=== PATIENT | male | born 1970 | race Caucasian/White ===

== ENCOUNTER → 2020-05-23 09:38 | Outpatient (BNVA) | payer OTHER, SELFPAY | PROVIDERS: Visit Provider Surgery | DX: Z12.11 Encounter for screening for malignant neoplasm of colon (principal); K64.9 Unspecified hemorrhoids; Z20.828 Contact with and (suspected) exposure to other viral communicable diseases | CPT/HCPCS: 87635 ==

== ENCOUNTER 2020-05-27 06:48 | Day surgery (SDC) | payer SELFPAY ==
[2020-05-23 11:58] VITALS: BMI 32.5
[2020-05-27] VITALS (17 sets, daily range): BP systolic 107–176; BP diastolic 83–117; PULSE 54–96; RESP 16–24; TEMP 36.2–37.4; O2SAT 94–100
--- NOTE | 2020-05-27 07:24 | ANES.PREANE2 ---
Pre-Anesthetic Assessment Pre-Anesthetic Assessment: Height/Weight: Height 1.83 m Weight 108.862 kg Temp Pulse Resp BP Pulse Ox 97.1 F L 68 18 166/104 97 05/27/20 07:12 05/27/20 07:12 05/27/20 07:12 05/27/20 07:12 05/27/20 07:12 Preop Diagnosis: Symptomatic hemorrhoids Proposed Procedure: Operation Date: 05/27/20 08:25 Proposed Procedures p Colonoscopy 50955 [id number] Z12.11 K64.9(Not Applicable) - Hi Marie MD s Exam Under Anesthesia(Not Applicable) - Hi Marie MD s Hemorroidectomy(Not Applicable) - Hi Marie MD Familial anesthetic complications: No hx of anesthesia Was Beta Jj taken within 24 hours: N/A Last intake: Intake Last Liquid Date 05/26/20 Last Liquid Time 20:00 Last Solid Date 05/25/20 Last Solid Time 20:00 Social: Social History: No alcohol and No tobacco Exam: Pre-Anes Outpt Exam: alert, oriented x 3, clear to auscultation bilaterally and regular rate & rhythm Airway: Cervical ROM: WNL MP: 3 Dentition: Other (missing teeth) Anesthetic Plan: ASA status: 1 Anesthesia: General Risk of > 500 ml blood loss (7ml/kg in children): No PFSH Anesthesia PFSH: Family History Father Cancer lung Grandmother Cancer bone marrow Other Diabetes Denies family history of CAD (coronary artery disease) Anesthesia complication Bleeding disorder Social History Smoking and tobacco status: former smoker Alcohol intake: former Household members: family Marital status: Single Current occupational status: employed History of recent travel: Yes Details: [place] Out of state: Yes Data Anesthesia Cardiac Studies: No Data to Display
[2020-05-27] MEDS: sodium chloride 0.9% 1,000 ML 30 ML IV (07:28)
--- NOTE | 2020-05-27 08:22 | W.PM.OPSUD ---
Surgery/Procedure H&P Update DATE OF PROCEDURE: May 27, 2020 DATE H&P PERFORMED: 05/15/20 H&P UPDATE INFORMATION: I have reviewed H&P completed within last 30 days, I have examined patient prior to procedure and No changes to prior documentation PREOP DIAGNOSIS: Symptomatic hemorrhoids PRIMARY INDICATION FOR PROCEDURE: The same PLANNED PROCEDURE: Operation Date: 05/27/20 08:25 Proposed Procedures p Colonoscopy 53068 [id number] 39289 Z12.11 K64.9(Not Applicable) - Hi Marie MD s Exam Under Anesthesia(Not Applicable) - Hi Marie MD s Hemorroidectomy(Not Applicable) - Hi Marie MD
[2020-05-27] MEDS: piperacillin-tazobactam 3.375 GM in sodium chloride 0.9% (plus) 50 ML IV (08:51)
--- NOTE | 2020-05-27 10:09 | PM.OP ---
Operative Report Date of procedure: May 27, 2020 Pre-op Diagnosis: Symptomatic hemorrhoids Post-op diagnosis: other (Sigmoid diverticulosis, internal hemorrhoids) Procedure Done: Colonoscopy, examination under anesthesia and hemorrhoidectomy Specimens removed/disposition: Specimen #1 right lower lateral hemorrhoid Specimen #2 left lower lateral hemorrhoid Specimen #3 right upper lateral hemorrhoid with element of thromboses Surgeon: Hi Marie Broadcast Engineer: Surgical haris Vogel/medical student Catherine 3rd year Anesthesia: General (datastage consultant Nancy) Estimated blood loss (mL): 10 Condition: stable Disposition: same day Brief History: This is a pleasant 50 years old gentleman referred to my practice with history of symptomatic hemorrhoids. Patient did not have a previous colonoscopy so after thorough history physical examination reviewing the chart I did estate planning counselor the patient for colonoscopy and examination under anesthesia with possible hemorrhoidectomy. Informed consent per chart. Procedure: Patient was identified in the holding area, was taken to the OR placed first in supine position,IV antibiotics were given with induction time-out was done verifying the patient's name, date of , and procedure, all were in agreement. Endotracheal intubation was placed by the anesthesia provider, patient was placed in left lateral position and all pressure points were padded occluding left axillary roll. Perianal examination showed no fissures or sinuses on rectal examination showed soft cystic lesions likely represent internal hemorrhoids. . Following that a digital rectal examination was done, the colonoscope was then introduced via the anus under direct visualization, all the way to the cecum, prep of the colon was appropriate, there were no polyps identified or masses. There was a diverticulosis of the sigmoid colon appreciated medium size without complication or bleeding. Otherwise normal findings ,the scope was then retrieved back ,time for withdrawal exceeded 6 minutes, gas was deflated on the way out.Retroflex was done at the end showing showed an internal hemorrhoids. Prep and drape of the perineum was done under the usual sterile technique Injection of 15 mL of Exparel for bilateral pudendal nerve block, guiding point was the ischial spine on each side located by the examining finger A lubricated self-retaining proctoscope was inserted, internal hemorrhoids were appreciated at the right upper and lower lateral as well as left lower lateral. Started by introducing a wet sponge to prevent any residual colon prep from contaminating the site of the excision, and under direct visualization I was able to hold the mass with hemostats, started by the right lower lateral hemorrhoid and dissection using harmonic scalpel was used followed by running 2-0 chromic catgut sutures. Same technique was done for the left lower lateral hemorrhoid and hemorrhoidectomy was achieved.Then attention was deviated towards the right upper lateral hemorrhoid and harmonic scalpel was also used for hemorrhoidectomy followed by running 2-0 chromic catgut sutures. Noticed to have some thromboses of the right upper lateral hemorrhoid. Hemostasis was achieved, irrigation was done, sponge was retrieved. Specimens were passed to the circulating nurse for permanent pathology. A piece of Surgicel /piece of Xeroform impregnated with lidocaine 2% jelly was placed in the anal canal, attached to 2-0 silk suture, to help retrieving it by the patient later on ABDs were applied followed by surgical pants Patient was repositioned to supine position, counts of instruments,needles and sponges were completed at the end of the procedure Patient was taken to the recovery area in stable condition I was present for the whole entire procedure Associated Problem List Diagnoses (1) Diverticulosis:
[2020-05-27] MEDS: fentaNYL 50 mcg/mL INJ 2mL IVP ×2 (10:18→10:23)
[2020-05-27] MEDS: morphine 4 mg/mL SDV 1 mL 2 MG IVP ×4 (10:26→10:44)
--- NOTE | 2020-05-27 11:16 | SUR.PHASEI ---
1012 PT TO PACU RESTLESS TURNING AND MOANING IN BED PT COUGHING THICK SECRETIONS PT NOT AWAKE ENOUGH TO COUGH SECRETIONS UP YANKER SX USED, PT AWAKES TO TOUCH , UNABLE TO GET BP DUE TO PT RESTLESSNES AND CLENCHING FISTS, 1023 SEE MEDS GIVEN PT ON RA SATS 100% PT VERY ALERT NOW AND CRYING OUT WITH PAIN DRESSING TO RECTUM D/I DR KENYON AT BEDSIDE SEE ORDERS GIVEN FOR OFIRMEV 1108 PT STILL C/O OF PAIN BUT FACE SCALE 3=4 NOW, PT MORE RELAXED TAKING ICE CHIPS NOW AND IS OK TO GO TO OPS AND TAKE PO PAIN MEDS HANDOFF AT BEDSIDE TO TIERA.
--- NOTE | 2020-05-27 11:43 | ANE.PACU2 ---
Inpatient post-anesthesia follow up: Airway intact: Yes Vital signs: Temperature 98.4 F Pulse Rate 55 Respiratory Rate 16 Blood Pressure 166/91 Pulse Oximetry 100 Oxygen Delivery Me thod Room Air Oxygen Flow Rate 8 Fraction of Inspir ed Oxygen Hydration adequate: Yes Nausea and vomiting: No Pain level: 4 Mental status: Baseline
== END 2020-05-27 11:50 | disposition home or self-care (01) ==
PROVIDERS: Visit Provider Surgery
PROC: 0DJD8ZZ Inspection of Lower Intestinal Tract, Via Natural or Artificial Opening Endoscopic (ICD-10-PCS; CPT 45378; principal; 2020-05-27 08:25)
PROC: (CPT 45378; 2020-05-27 08:25)
PROC: (CPT 45378; 2020-05-27 08:25)
DX: Z12.11 Encounter for screening for malignant neoplasm of colon (principal); K64.8 Other hemorrhoids; K57.30 Diverticulosis of large intestine without perforation or abscess without bleeding; Z87.891 Personal history of nicotine dependence
CPT/HCPCS: 45378; 46260; 12345; 88304; 96365; C9290; J0131; J0330; J1100; J1885; J2270; J2405; J2543; J2704; J3010; J3490; J7030

== ENCOUNTER 2024-08-09 16:08 | Emergency (ER) | payer MEDICAID, SELFPAY ==
[2024-08-09 16:25] VITALS: BP 136/99; PULSE 89; TEMP 36.4; O2SAT 96; BMI 32.5
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
[2024-08-09 16:45] VITALS: BP 175/92; PULSE 83; RESP 16; O2SAT 93
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
[2024-08-09 17:55] VITALS: BP 152/95; PULSE 77; RESP 16; O2SAT 95
[2024-08-09 18:47] VITALS: BP 155/101; PULSE 83; O2SAT 95
== END 2024-08-09 18:48 | disposition home or self-care (01) ==
PROVIDERS: Emergency Provider Physician Assistant
DX: S39.012A Strain of muscle, fascia and tendon of lower back, initial encounter (principal); S16.1XXA Strain of muscle, fascia and tendon at neck level, initial encounter; V89.2XXA Person injured in unspecified motor-vehicle accident, traffic, initial encounter; Z87.891 Personal history of nicotine dependence
CPT/HCPCS: 70450; 72125; 72128; 72131; 99284